=== PATIENT | female | born 1945 | race Caucasian/White ===

== ENCOUNTER 2021-02-21 12:39 | Emergency (ER) | payer MEDICARE, OTHER ==
[2021-02-21] MEDS ORDERED: Ondansetron 4 MG Tab.DIS PO ONE (13:10)
--- NOTE | 2021-02-21 13:14 | EDM.PDOC ---
ED HPI GENERAL MEDICAL PROBLEM - General Chief Complaint: Gastrointestinal Problem Stated Complaint: VOMITING AND HIGH BLOOD PRESSURE SENT BY [facility] Time Seen by Provider: 02/21/21 12:51 Source of Information: Reports: Patient, Family (), RN Notes Reviewed History Limitations: Reports: No Limitations - History of Present Illness INITIAL COMMENTS - FREE TEXT/NARRATIVE: Patient is a 76-year-old female who presents to the ED for the evaluation of her elevated blood pressure readings and vomiting. Patient notes that she has had some vomiting since yesterday, with associated nausea. She vomited about 3 times yesterday she became concerned when her blood pressure spiked to roughly 140 systolically over 90s diastolically. Patient's heart rate also spiked to 100-112 and she became concerned. She notes that she was able to keep a small amount of fluids down this morning, but still feels slightly nauseous. She is complaining of some pain in her low back, and just a generalized stomachache. She is not having any dysuria, urgency or frequency. She does complain of a left inguinal hernia, that she is able to reduce at times but states this was pretty painful yesterday again but she was able to reduce the hernia back into its position. She notes that she had some chills last night after vomiting but has had no fever, cough or shortness of breath. No one else in her house has- like symptoms. She is not complaining of any diarrhea. She notes that she has seen a specialist in [facility] for her hernia but was told that nothing would be done with it unless it became a surgical emergency. Lower Abdomen Pain Score (Numeric/FACES): 3 - Related Data Allergies Allergy/AdvReac Type Severity Reaction Status Date / Time cat dander Allergy Sneezing Verified 02/21/21 12:50 metoprolol Allergy Swelling Verified 02/21/21 12:50 Home Meds: Home Meds Acetaminophen [Tylenol Extra Strength] 500 mg PO Q6H PRN 06/28/15 [History] Ascorbic Acid [Vitamin C] 1 tab PO DAILY 06/28/15 [History] Aspirin [[place] Aspirin] 81 mg PO DAILY 06/28/15 [History] Calcium Carbonate [Calcium] 1,200 mg PO DAILY 06/28/15 [History] Celecoxib [CeleBREX] 200 mg PO DAILY 06/28/15 [History] Esomeprazole [NexIUM] 40 mg PO DAILY 06/28/15 [History] Glucosam/Chondr/Collagn/Hyalur [Glucosamine & Chondroitin Cap] 1 each PO DAILY 06/28/15 [History] LORazepam 1 mg PO ASDIRECTED PRN 06/28/15 [History] Levothyroxine [Sythroid] 100 mcg PO DAILY 06/28/15 [History] Multivitamin [Multivitamins] 1 each PO DAILY 06/28/15 [History] Nitroglycerin [Nitrostat] 0.4 mg SL ASDIRECTED PRN 06/28/15 [History] Simvastatin [Zocor] 20 mg PO ONETIME 06/28/15 [History] Ticagrelor [Brilinta] 90 mg PO BID 06/28/15 [History] amLODIPine [Norvasc] 5 mg PO DAILY 06/28/15 [History] Cefdinir [Omnicef] 300 mg PO BID 5 Days #10 cap 02/21/21 [Rx] Ondansetron [Zofran ODT] 4 mg PO Q8H PRN #15 tab.dis 02/21/21 [Rx] Past Medical History HEENT History: Reports: Impaired Vision Other HEENT History: Wears glasses Gastrointestinal History: Reports: Cholelithiasis, Chronic Constipation, Diverticulosis, Hiatal Hernia Genitourinary History: Reports: Urinary Incontinence Musculoskeletal History: Reports: Back Pain, Chronic Endocrine/Metabolic History: Reports: Hypothyroidism - Past Surgical History Cardiovascular Surgical History: Reports: Coronary Artery Stent GI Surgical History: Reports: Appendectomy, Cholecystectomy Female Surgical History: Reports: Hysterectomy Neurological Surgical History: Reports: Laminectomy Musculoskeletal Surgical History: Reports: Knee Replacement, Shoulder Rep lacement Social & Family History - Tobacco Use Tobacco Use Status *Q: Former Tobacco User Used Tobacco, but Quit: Yes Month/Year Tobacco Last Used: 1998 - Recreational Drug Use Recreational Drug Use: No ED ROS GENERAL - Review of Systems Review Of Systems: Comprehensive ROS is negative, except as noted in HPI. ED EXAM, GI/ABD - Physical Exam Exam: See Below Exam Limited By: No Limitations General Appearance: Alert, WD/WN, No Apparent Distress Respiratory/Chest: No Respiratory Distress, Lungs Clear, Normal Breath Sounds, No Accessory Muscle Use, Chest Non-Tender Cardiovascular: Normal Peripheral Pulses, Regular Rate, Rhythm, No Edema GI/Abdominal Exam: Normal Bowel Sounds, Soft, No Distention, No Mass, Tender (slight tenderness over epigastrium) Extremities: Normal Inspection, Normal Capillary Refill Neurological: Alert, Oriented, Normal Cognition, No Motor/Sensory Deficits Psychiatric: Normal Affect, Normal Mood Skin Exam: Warm, Dry, Intact, Normal Color, No Rash Course - Vital Signs Last Recorded V/S: Last Vital Signs Temp 97.7 F 02/21/21 12:50 Pulse 89 02/21/21 12:50 Resp 15 02/21/21 12:50 BP 109/74 02/21/21 12:50 Pulse Ox 86 L 02/21/21 12:50 - Orders/Labs/Meds Labs: Laboratory Tests 02/21/21 Range/Units 13:20 Urine Color Yellow (Yellow) Urine Appearance Clear (Clear) Urine pH 5.0 (5.0-8.0) Ur Specific [place] > or = 1.030 (1.005-1.030) Urine Protein 2+ H (Negative) Urine Glucose (UA) Negative (Negative) Urine Ketones 1+ H (Negative) Urine Occult Blood 2+ H (Negative) Urine Nitrite Negative (Negative) Urine Bilirubin 2+ H (Negative) Urine Urobilinogen 1.0 (0.2-1.0) Ur Leukocyte Esterase 3+ H (Negative) Meds: Medications Discontinued Medications Generic Name Dose Route Start Last Admin Trade Name Eleni PRN Reason Stop Dose Admin Ondansetron HCl 4 mg 02/21/21 13:10 02/21/21 13:25 Ondansetron 4 Mg Tab.Dis PO 02/21/21 13:11 4 mg ONETIME ONE Administration - Re-Assessments/Exams Free Text/Narrative Re-Assessment/Exam: 02/21/21 13:13 Patient presents to the ED for ongoing nausea/vomiting, and low back pain, we will go ahead and get a urinalysis to rule out UTI and will give her a dose of oral Zofran for initial nausea management. 02/21/21 13:46 The patient's urinalysis sample was not provided enough volume to do microscopy however nitrites are negative but leukocyte Estrace is 3+, which is suspicious for a possible ongoing UTI, will go ahead and culture the sample provided and stick her on Omnicef for suspected UTI. Departure - Departure Time of Disposition: 13:50 Disposition: Home, Self-Care 01 Condition: Good Clinical Impression: UTI (urinary tract infection) Qualifiers: Urinary tract infection type: acute cystitis Hematuria presence: without hematuria Qualified Code(s): N30.00 - Acute cystitis without hematuria Nausea & vomiting Qualifiers: Vomiting type: unspecified Vomiting Intractability: non-intractable Qualified Code(s): R11.2 - Nausea with vomiting, unspecified - Discharge Information *PRESCRIPTION DRUG MONITORING PROGRAM REVIEWED*: No *COPY OF PRESCRIPTION DRUG MONITORING REPORT IN PATIENT EMELY: No Instructions: Nausea and Vomiting, Adult, [id number], Urinary Tract Infection, Adult, [id number] Referrals: PCP,Not In Area [Primary Care Provider] - Forms: ED Department Discharge Additional Instructions: You have been evaluated in the ED for your urinary symptoms. Your urinalysis was consistent with an acute urinary tract infection. Your urine was sent for culture, and you will be notified if you should need a change in your antibiotic. This may take up to 48 hours to result. You have been given a prescription for Omnicef (cefdinir), 300 mg 1 tablet 2 times a day for 5 days. Please note that the antibiotics can take up to 48 hours to start working. Please increase your oral fluid intake and try to stay adequately hydrated. You were given a medication called Zofran as well for nausea, please use 1 tablet dissolvable under your tongue every 6-8 hours as needed for nausea. Your first dose was given to you in the ER at around 1:30 PM. So you may start dosing again at around 7-9:00 tonight. Please return to the ED if your symptoms change or worsen. Sepsis Event Note (ED) - Evaluation Sepsis Screening Result: No Definite Risk - Focused Exam Vital Signs: Vital Signs Temp Pulse Resp BP Pulse Ox 02/21/21 12:50 97.7 F 89 15 109/74 86 L
[2021-02-21 14:25] VITALS: BP 102/61; PULSE 76
== END 2021-02-21 14:05 | disposition home or self-care (01) ==
LOC: JD.ED 12:39
DX: N30.00 Acute cystitis without hematuria (principal); Z88.8 Allergy status to other drugs, medicaments and biological substances; Z79.899 Other long term (current) drug therapy; Z79.82 Long term (current) use of aspirin; E03.9 Hypothyroidism, unspecified; Z90.49 Acquired absence of other specified parts of digestive tract; Z90.710 Acquired absence of both cervix and uterus; Z87.891 Personal history of nicotine dependence
CPT/HCPCS: 81003; 87086; 87088; 87184; 87186; 99284; A9270; 99283

== ENCOUNTER 2021-02-22 23:41 | Inpatient (IN) | payer MEDICARE, OTHER ==
[2021-02-23] MEDS ORDERED: Ondansetron 4 MG/2 ML SDV IVPUSH ONE ×2 (00:08→03:46)
--- NOTE | 2021-02-23 00:09 | EDM.PDOC ---
ED HPI GENERAL MEDICAL PROBLEM - General Chief Complaint: Gastrointestinal Problem Stated Complaint: poss uti nausea back pain Time Seen by Provider: 02/22/21 23:48 Source of Information: Reports: Patient History Limitations: Reports: No Limitations - History of Present Illness INITIAL COMMENTS - FREE TEXT/NARRATIVE: This is a 76-year-old female. She was seen here on due to some nausea and vomiting and difficulty in keeping fluids down. She was found to have a urinary tract infection and placed on Omnicef. She was also given Zofran to take home. She states that she has not been able to keep anything down since she got home. She has taken for Omnicef. She has been using the Zofran but it has not been helping. She complains of feeling bloated and her mid abdomen is where she seems to be hurting. She also complains of bilateral flank soreness and pain but it does not seem to get worse when she vomits. She thinks she has had the chills as well but she has not documented a fever. She comes back to the ER because of the persistent nausea and vomiting and abdominal pain. She does have a hernia in the left lower quadrant area but that has not been hurting her. She indicates the hernia is nonfixable unless it gets strangulated. She is able to push it back in. The patient indicates she has had a cholecystectomy, hysterectomy but the ovaries are still there and also appendectomy. After I spoke with Dr. Mcdermott the patient now tells me she has a history of stents but she has no current cardiac symptoms and she has been stable. Back Pain Score (Numeric/FACES): 6 - Related Data Allergies Allergy/AdvReac Type Severity Reaction Status Date / Time cat dander Allergy Sneezing Verified 02/22/21 23:51 colchicine Allergy Rash Verified 02/23/21 05:53 metoprolol Allergy Swelling Verified 02/22/21 23:51 Home Meds: Home Meds Acetaminophen [Tylenol Extra Strength] 500 mg PO Q6H PRN 06/28/15 [History] Ascorbic Acid [Vitamin C] 1 tab PO DAILY 06/28/15 [History] Aspirin [[place] Aspirin] 81 mg PO DAILY 06/28/15 [History] Calcium Carbonate [Calcium] 1,200 mg PO DAILY 06/28/15 [History] Celecoxib [CeleBREX] 200 mg PO DAILY 06/28/15 [History] Esomeprazole [NexIUM] 40 mg PO DAILY 06/28/15 [History] Glucosam/Chondr/Collagn/Hyalur [Glucosamine & Chondroitin Cap] 1 each PO DAILY 06/28/15 [History] LORazepam 1 mg PO ASDIRECTED PRN 06/28/15 [History] Levothyroxine [Sythroid] 100 mcg PO DAILY 06/28/15 [History] Multivitamin [Multivitamins] 1 each PO DAILY 06/28/15 [History] Nitroglycerin [Nitrostat] 0.4 mg SL ASDIRECTED PRN 06/28/15 [History] Simvastatin [Zocor] 20 mg PO ONETIME 06/28/15 [History] Ticagrelor [Brilinta] 90 mg PO BID 06/28/15 [History] amLODIPine [Norvasc] 5 mg PO DAILY 06/28/15 [History] Cefdinir [Omnicef] 300 mg PO BID 5 Days #10 cap 02/21/21 [Rx] Ondansetron [Zofran ODT] 4 mg PO Q8H PRN #15 tab.dis 02/21/21 [Rx] Past Medical History HEENT History: Reports: Impaired Vision Other HEENT History: Wears glasses Gastrointestinal History: Reports: Cholelithiasis, Chronic Constipation, Diverticulosis, Hiatal Hernia Genitourinary History: Reports: Urinary Incontinence Musculoskeletal History: Reports: Back Pain, Chronic Endocrine/Metabolic History: Reports: Hypothyroidism - Past Surgical History Cardiovascular Surgical History: Reports: Coronary Artery Stent GI Surgical History: Reports: Appendectomy, Cholecystectomy Female Surgical History: Reports: Hysterectomy Neurological Surgical History: Reports: Laminectomy Musculoskeletal Surgical History: Reports: Knee Replacement, Shoulder Replacement Social & Family History - Family History Family Medical History: No Pertinent Family History - Tobacco Use Tobacco Use Status *Q: Former Tobacco User Used Tobacco, but Quit: Yes Month/Year Tobacco Last Used: 1998 - Caffeine Use Caffeine Use: Reports: Coffee - Recreational Drug Use Recreational Drug Use: No ED ROS GENERAL - Review of Systems Review Of Systems: See Below Constitutional: Reports: Chills. Denies: Fever HEENT: Reports: No Symptoms Respiratory: Denies: Shortness of Breath, Cough Cardiovascular: Denies: Chest Pain GI/Abdominal: Reports: Abdominal Pain, Nausea, Vomiting. Denies: Constipation, Diarrhea : Reports: No Symptoms Musculoskeletal: Reports: Back Pain Skin: Reports: No Symptoms Neurological: Reports: No Symptoms Psychiatric: Reports: No Symptoms Hematologic/Lymphatic: Reports: No Symptoms ED EXAM, GI/ABD - Physical Exam Exam: See Below Exam Limited By: No Limitations General Appearance: Alert, WD/WN, Mild Distress, Other (Feels like she is gagging in the ER) Eyes: Bilateral: Normal Appearance Ears: Normal External Exam Nose: Normal Inspection Throat/Mouth: Normal Inspection, Normal Lips, Normal Voice, No Airway Compromise Head: Normocephalic Neck: Supple Respiratory/Chest: No Respiratory Distress, Lungs Clear, Normal Breath Sounds Cardiovascular: Regular Rate, Rhythm, No Murmur GI/Abdominal Exam: Soft, Tender, Hernia, Other (The mid abdomen is where she is tender and she seems to be distended though it is soft with no peritoneal signs. The left lower quadrant hernia is reduced.). No: Guarding, Rigid, Rebound Back Exam: Normal Inspection, Full Range of Motion, Other (She has no CVA tenderness noted on percussion) Extremities: Normal Inspection, Normal Range of Motion Neurological: Alert, Oriented Psychiatric: Anxious Skin Exam: Warm, Dry Course - Vital Signs Last Recorded V/S: Last Vital Signs Temp 97.7 F 02/23/21 03:35 Pulse 93 02/23/21 03:00 Resp 15 02/23/21 04:05 BP 130/73 02/23/21 04:05 Pulse Ox 92 L 02/23/21 04:05 - Orders/Labs/Meds Orders: Active Orders 24 hr Category Date Time Status Admission Status [Patient Status] [ADT] Routine ADT 02/23/21 03:19 Active Abdomen 2V AP Flat Upright [CR] Stat Exams 02/23/21 00:08 Taken Abdomen Pelvis wo Cont [CT] Stat Exams 02/23/21 01:17 Taken CULTURE URINE [RM] Stat Lab 02/23/21 02:15 Received Medication Orders Hydromorphone HCl (Hydromorphone 0.5 Mg/0.5 Ml Syringe) 0.5 mg IVPUSH Q4H PRN PRN Reason: cramps Lactated Ringer's (Ringers, Lactated) 1,000 mls @ 125 mls/hr IV ASDIRECTED [facility] Last Admin: 02/23/21 05:37 Dose: 125 mls/hr Documented by: DAVIS Ceftriaxone Sodium 2 gm/ (Sodium Chloride) 100 mls @ 200 mls/hr IV Q24H GRAHAM Ondansetron HCl (Ondansetron 4 Mg/2 Ml Sdv) 4 mg IVPUSH Q4HR PRN PRN Reason: nausea Labs: Laboratory Tests 02/23/21 02/23/21 02/23/21 Range/Units 00:17 00:25 00:25 WBC 8.80 (3.98-10.04) K/mm3 RBC 4.29 (3.98-5.22) M/mm3 Hgb 13.1 (11.2-15.7) gm/dl Hct 41.2 (34.1-44.9) % MCV 96.0 H (79.4-94.8) fl MCH 30.5 (25.6-32.2) pg MCHC 31.8 L (32.2-35.5) g/dl RDW Std Deviation 48.0 H (36.4-46.3) fL Plt Count 291 (182-369) K/mm3 MPV 10.8 (9.4-12.3) fl Neut % (Auto) 82.9 H (34.0-71.1) % Lymph % (Auto) 8.4 L (19.3-51.7) % [place] % (Auto) 7.2 (4.7-12.5) % Eos % (Auto) 1.3 (0.7-5.8) Baso % (Auto) 0.1 (0.1-1.2) % Neut # (Auto) 7.30 H (1.56-6.13) K/mm3 Lymph # (Auto) 0.74 L (1.18-3.74) K/mm3 [place] # (Auto) 0.63 H (0.24-0.36) K/mm3 Eos # (Auto) 0.11 (0.04-0.36) K/mm3 Baso # (Auto) 0.01 (0.01-0.08) K/mm3 Manual Slide Review Abnormal smear Sodium 134 L (136-145) mEq/L Potassium 4.6 (3.5-5.1) mEq/L Chloride 96 L (98-107) mEq/L Carbon Dioxide 26 (21-32) mEq/L Anion Gap 16.6 H (5-15) BUN 31 H (7-18) mg/dL Creatinine 2.1 H (0.55-1.02) mg/dL Est Cr Clr Drug Dosing 16.11 mL/min Estimated GFR (MDRD) 23 (>60) mL/min BUN/Creatinine Ratio 14.8 (14-18) Glucose 113 (83-115) mg/dL Calcium 9.7 (8.5-10.1) mg/dL Total Bilirubin 0.7 (0.2-1.0) mg/dL AST 25 (15-37) U/L ALT 24 (14-59) U/L Alkaline Phosphatase 88 (46-116) U/L C-Reactive Protein 2.5 H* (<1.0) mg/dL Total Protein 7.3 (6.4-8.2) g/dl Albumin 3.3 L (3.4-5.0) g/dl Globulin 4.0 gm/dL Albumin/Globulin Ratio 0.8 L (1-2) Lipase 74 (73-393) U/L Urine Color Yellow (Yellow) Urine Appearance Cloudy H (Clear) Urine pH 5.0 (5.0-8.0) Ur Specific [place] > or = 1.030 (1.005-1.030) Urine Protein 1+ H (Negative) Urine Glucose (UA) Negative (Negative) Urine Ketones 1+ H (Negative) Urine Occult Blood 2+ H (Negative) Urine Nitrite Negative (Negative) Urine Bilirubin 2+ H (Negative) Urine Urobilinogen 0.2 (0.2-1.0) Ur Leukocyte Esterase 1+ H (Negative) U Hyaline Cast (Auto) 20-30 H (0-5) /lpf Urine RBC 5-10 H (0-5) /hpf Urine WBC 50-75 H (0-5) /hpf Ur Squamous Epith Cells 20-30 H (0-5) /hpf Urine Bacteria Many H (FEW) /hpf Urine Mucus Not seen (FEW) /hpf Meds: Medications Generic Name Dose Route Start Last Admin Trade Name Freq PRN Reason Stop Dose Admin Hydromorphone HCl 0.5 mg 02/23/21 06:18 Hydromorphone 0.5 Mg/0.5 Ml Syringe IVPUSH Q4H PRN cramps Lactated Ringer's 1,000 mls @ 125 mls/hr 02/23/21 05:22 02/23/21 05:37 Ringers, Lactated IV 125 mls/hr ASDIRECTED GRAHAM Administration Ceftriaxone Sodium 2 gm/ 100 mls @ 200 mls/hr 02/23/21 06:30 Sodium Chloride IV Q24H GRAHAM Ondansetron HCl 4 mg 02/23/21 08:00 Ondansetron 4 Mg/2 Ml Sdv IVPUSH Q4HR PRN nausea Discontinued Medications Generic Name Dose Route Start Last Admin Trade Name Freq PRN Reason Stop Dose Admin Hydromorphone HCl 0.5 mg 02/23/21 03:45 02/23/21 03:51 Hydromorphone 0.5 Mg/0.5 Ml Syringe IVPUSH 02/23/21 03:46 0.5 mg ONETIME ONE Administration Sodium Chloride 1,000 mls @ 1,000 mls/hr 02/23/21 00:15 02/23/21 00:27 Normal Saline IV 1,000 mls/hr ASDIRECTED GRAHAM Administration Lactated Ringer's 1,000 mls @ 999 mls/hr 02/23/21 03:45 02/23/21 04:00 Ringers, Lactated IV 02/23/21 04:45 999 mls/hr .BOLUS ONE Administration Lactated Ringer's Confirm 02/23/21 05:18 02/23/21 06:10 Ringers, Lactated Administered 02/23/21 05:19 Not Given Dose 1,000 mls @ as directed .ROUTE .STK-MED ONE Lidocaine HCl 10 ml 02/23/21 03:21 02/23/21 03:32 Lidocaine 2% Jelly 10 Ml Urojet MUCMEM 02/23/21 03:22 10 ml ONETIME ONE Administration Ondansetron HCl 4 mg 02/23/21 00:08 02/23/21 00:27 Ondansetron 4 Mg/2 Ml Sdv IVPUSH 02/23/21 00:09 4 mg ONETIME ONE Administration Ondansetron HCl 4 mg 02/23/21 03:46 02/23/21 03:51 Ondansetron 4 Mg/2 Ml Sdv IVPUSH 02/23/21 03:47 4 mg ONETIME ONE Administration - Radiology Interpretation Free Text/Narrative:: Flat and upright x-ray shows multiple air-fluid levels and dilated bowel loops. CT scan without contrast of the abdomen and pelvis shows a small bowel obstruction with a transition point in the mid abdomen there is no free air and there is no fluid collection. X-ray shows the NG tube to be in the stomach bubble - Re-Assessments/Exams Free Text/Narrative Re-Assessment/Exam: 02/23/21 03:09 Spoke to the patient regarding the blood work as well as the CT scan that shows a small bowel obstruction with a transition point in the mid abdomen there is no fluid in the pelvis and there is no air noted. 02/23/21 03:[address] Mcdermott regarding the patient's condition. He is willing to admit the patient for further evaluation and treatment. 02/23/21 03:13 Patient does have a urinary tract infection we will treat it with some Rocephin IV. 02/23/21 04:40 X-ray shows the NG tube to be in the stomach bubble. 02/23/21 04:52 I wrote some bridge orders for Dr. Mcdermott. He was wanting a CBC and a BMP at 6 AM blood draw. I started her on Rocephin 2 g IV every 24 hours for her UTI. Departure - Departure Time of Disposition: 03:11 Disposition: Admitted As Inpatient 65 Condition: Fair Clinical Impression: Small bowel obstruction, Abdominal cramps, Abdominal distention Ventral hernia Qualifiers: Obstruction and gangrene presence: without obstruction or gangrene Qualified Code(s): K43.9 - Ventral hernia without obstruction or gangrene Nausea and vomiting Qualifiers: Vomiting type: unspecified Vomiting Intractability: non-intractable Qualified Code(s): R11.2 - Nausea with vomiting, unspecified UTI (urinary tract infection) Qualifiers: Urinary tract infection type: acute cystitis Hematuria presence: without hematuria Qualified Code(s): N30.00 - Acute cystitis without hematuria - Discharge Information Sepsis Event Note (ED) - Evaluation Sepsis Screening Result: No Definite Risk - Focused Exam Vital Signs: Vital Signs Temp Pulse Resp BP Pulse Ox 02/23/21 03:00 93 17 113/71 96 02/23/21 02:17 88 16 114/68 96 02/23/21 01:00 74 16 112/56 L 94 L 02/23/21 00:00 84 17 114/58 L 94 L 03/26/21 23:48 96.9 F 88 17 111/66 99 ED Communication - ED Communication Date/Time Date: 02/23/21 Time Called: 03:10 - Discussed Case With (1) Discussed Case With (1): Admitting Provider Person/s Notified (1): Hernán Mcdermott (He will admit for further evaluation and treatment) - My Orders Last 24 Hours: My Active Orders 02/23/21 00:08 Abdomen 2V AP Flat Upright [CR] Stat 02/23/21 01:17 Abdomen Pelvis wo Cont [CT] Stat 02/23/21 02:15 CULTURE URINE [RM] Stat 02/23/21 03:19 Admission Status [Patient Status] [ADT] Routine - Assessment/Plan Last 24 Hours: My Active Orders 02/23/21 00:08 Abdomen 2V AP Flat Upright [CR] Stat 02/23/21 01:17 Abdomen Pelvis wo Cont [CT] Stat 02/23/21 02:15 CULTURE URINE [RM] Stat 02/23/21 03:19 Admission Status [Patient Status] [ADT] Routine
[2021-02-23] MEDS ORDERED: Sodium Chloride 0.9% 1,000 ML IV SCH (00:15)
[2021-02-23] MEDS ORDERED: Lidocaine 2% Jelly 10 ML Urojet MUCMEM ONE (03:21)
[2021-02-23] MEDS ORDERED: Lactated Ringers 1,000 ML IV ONE (03:45)
[2021-02-23] MEDS ORDERED: HYDROmorphone 0.5 MG/0.5 ML Syringe IVPUSH ONE (03:45)
[2021-02-23] MEDS ORDERED: Lactated Ringers 1,000 ML ONE (05:18)
[2021-02-23] MEDS ORDERED: Lactated Ringers 1,000 ML IV SCH (05:22)
[2021-02-23] MEDS ORDERED: HYDROmorphone 0.5 MG/0.5 ML Syringe IVPUSH PRN (06:18)
[2021-02-23] MEDS ORDERED: cefTRIAXone 2 GM in Sodium Chloride 0.9% 100 ML IV SCH (06:30)
[2021-02-23 06:55] VITALS: BP 130/78; PULSE 88
[2021-02-23] MEDS ORDERED: Ondansetron 4 MG/2 ML SDV IVPUSH PRN (08:00)
--- NOTE | 2021-02-23 08:01 | PCM.SN.2 ---
- Free Text/Narrative Note: Patient admitted overnight with small bowel obstruction. NG with minimal output; No flatus. Distended loops of bowel, tender, palpable through large infraumbilical midline hernia. No peritonitis. Patient and family express no confidence and wish to go to [place] for care. I explained a plan for management including upsizing the NG tube, trial of therapeutic gastrografin, and fluid resuscitation. The patient wants to go to [place] now. I see no medical reason the patient requires transfer to a higher level of care, so I have asked the patient to sign out against medical advice as she feels most comfortable having family drive her now.
--- NOTE | 2021-02-24 08:27 | CR ---
Abdomen: Supine and upright views of the abdomen were obtained. Comparison: No prior abdominal x-ray is available. Scoliosis is noted within the spine with degenerative change. Scattered areas of air-fluid levels are seen within the small bowel. Small bowel only appears mildly dilated. Gas within the colon is seen which is unremarkable. No free air is seen. Surgical clips are seen from prior cholecystectomy. Vascular calcification is noted. Impression: 1. Air-fluid levels within small bowel. Small bowel is slightly dilated. Finding suspicious for partial or developing small bowel obstruction. 2. Other findings as noted above which are felt to be incidental. Diagnostic code #3
--- NOTE | 2021-02-24 08:35 | CR ---
Chest: Portable view of the chest was obtained. Comparison: Prior chest x-ray of 04/20/13. Heart size is within normal limits for portable technique. Tortuous thoracic aorta is noted. Nasogastric tube is seen with tip lying within the stomach fundus. Lungs are clear with no acute parenchymal change. Right shoulder prosthesis is noted. Scoliosis is noted within the spine. Scattered degenerative change is also noted within the spine. Impression: 1. Tip of nasogastric tube within the stomach fundus. 2. Other findings as noted above. No other acute abnormality is appreciated. Diagnostic code #3
--- NOTE | 2021-02-24 11:57 | CT ---
CT abdomen and pelvis Technique: Multiple axial sections were obtained from above the dome of the diaphragm inferiorly through the pubic symphysis. Intravenous and oral contrast not utilized. Reconstructed coronal and sagittal images were obtained. Comparison: Prior abdominal x-ray performed on the same date (12:34 AM). Findings: Fluid-filled and air-filled dilated small bowel are noted. Lower anterior abdominal wall hernia is seen at the level of the pelvis which contains dilated small bowel loops. Transition point of the obstruction is difficult to see but is most likely within the mid abdomen. Distal loops of small bowel are normal in size. Appendix is not definitely visualized. Visualized lung bases show nothing acute. Noncontrast appearance of the liver and spleen appear within normal limits. Small hiatal hernia is noted. Adrenal glands are slightly full without discrete nodule. Pancreas shows no discrete abnormality. Prior cholecystectomy is seen. Kidneys show no abnormal calcifications or hydronephrosis. Abdominal aorta shows atherosclerotic change which continues into the iliac vessels. No aneurysm is seen. No retroperitoneal adenopathy or mesenteric abnormalities are appreciated. No pelvic mass or adenopathy is appreciated. Slight scattered diverticuli are seen with no inflammatory change of diverticulitis. Bone window settings were reviewed which show diffuse degenerative change within the spine with disc space narrowing and vacuum phenomena. Mild spondylolisthesis is noted at L4-5 due to degenerative apophyseal change. Degenerative change is also noted within the sacroiliac joints. Diffuse coronary artery calcification is partially visualized. Impression: 1. Dilated small bowel loops which are more prominent than on previous plain film study. Findings are felt compatible with mid small bowel obstruction with distal small bowel appearing normal in size. 2. Anterior abdominal wall hernia at the level of the pelvis. This abdominal wall hernia contains loops of dilated small bowel but does not appear to be obstructing. 3. Other findings as noted above which are believed to be chronic. Diagnostic code #3 I agree with preliminary report from [facility], finalized on 02/23/21, 3:54 AM CDT
--- NOTE | 2021-02-27 16:20 | PCM.DCSUM1 ---
Discharge Summary - Hospital Course Free Text/Narrative:: Patient was admitted overnight with small bowel obstruction by the emergency medicine doctor. On morning rounds, when I first saw the patient and family and discussed diagnosis and management, they decided they wanted to pursue care in [place], closer to family. - Discharge Data Discharge Date: 02/23/21 Discharge Disposition: Against Medical Advice 07 Condition: Good - Referral to Home Health Primary Care Physician: Abhay Quinones MD - Discharge Plan Home Medications: Home Meds Acetaminophen [Tylenol Extra Strength] 500 mg PO Q6H PRN 06/28/15 [History] Ascorbic Acid [Vitamin C] 1 tab PO DAILY 06/28/15 [History] Aspirin [[place] Aspirin] 81 mg PO DAILY 06/28/15 [History] Calcium Carbonate [Calcium] 1,200 mg PO DAILY 06/28/15 [History] Celecoxib [CeleBREX] 200 mg PO DAILY 06/28/15 [History] Esomeprazole [NexIUM] 40 mg PO DAILY 06/28/15 [History] Glucosam/Chondr/Collagn/Hyalur [Glucosamine & Chondroitin Cap] 1 each PO DAILY 06/28/15 [History] LORazepam 1 mg PO ASDIRECTED PRN 06/28/15 [History] Levothyroxine [Sythroid] 100 mcg PO DAILY 06/28/15 [History] Multivitamin [Multivitamins] 1 each PO DAILY 06/28/15 [History] Nitroglycerin [Nitrostat] 0.4 mg SL ASDIRECTED PRN 06/28/15 [History] Simvastatin [Zocor] 20 mg PO ONETIME 06/28/15 [History] Ticagrelor [Brilinta] 90 mg PO BID 06/28/15 [History] amLODIPine [Norvasc] 5 mg PO DAILY 06/28/15 [History] Cefdinir [Omnicef] 300 mg PO BID 5 Days #10 cap 02/21/21 [Rx] Ondansetron [Zofran ODT] 4 mg PO Q8H PRN #15 tab.dis 02/21/21 [Rx] - Discharge Summary/Plan Comment DC Time >30 min.: No - Patient Data Vitals - Most Recent: Last Vital Signs Temp 36.7 C 02/23/21 05:14 Pulse 72 02/23/21 05:20 Resp 14 02/23/21 05:14 BP 120/85 02/23/21 05:14 Pulse Ox 100 02/23/21 05:20 Weight - Most Recent: 76.884 kg Med Orders - Current: Current Medications Discontinued Medications Hydromorphone HCl (Hydromorphone 0.5 Mg/0.5 Ml Syringe) 0.5 mg IVPUSH ONETIME ONE Stop: 02/23/21 03:46 Last Admin: 02/23/21 03:51 Dose: 0.5 mg Documented by: Hydromorphone HCl (Hydromorphone 0.5 Mg/0.5 Ml Syringe) 0.5 mg IVPUSH Q4H PRN PRN Reason: cramps Sodium Chloride (Normal Saline) 1,000 mls @ 1,000 mls/hr IV ASDIRECTED [facility] Last Admin: 02/23/21 00:27 Dose: 1,000 mls/hr Documented by: Lactated Ringer's (Ringers, Lactated) 1,000 mls @ 999 mls/hr IV .BOLUS ONE Stop: 02/23/21 04:45 Last Admin: 02/23/21 04:00 Dose: 999 mls/hr Documented by: Lactated Ringer's (Ringers, Lactated) Confirm Administered Dose 1,000 mls @ as directed .ROUTE .STK-MED ONE Stop: 02/23/21 05:19 Last Admin: 02/23/21 06:10 Dose: Not Given Documented by: Lactated Ringer's (Ringers, Lactated) 1,000 mls @ 125 mls/hr IV ASDIRECTED [facility] Last Admin: 02/23/21 05:37 Dose: 125 mls/hr Documented by: Ceftriaxone Sodium 2 gm/ (Sodium Chloride) 100 mls @ 200 mls/hr IV Q24H [facility] Lidocaine HCl (Lidocaine 2% Jelly 10 Ml Urojet) 10 ml MUCMEM ONETIME ONE Stop: 02/23/21 03:22 Last Admin: 02/23/21 03:32 Dose: 10 ml Documented by: Ondansetron HCl (Ondansetron 4 Mg/2 Ml Sdv) 4 mg IVPUSH ONETIME ONE Stop: 02/23/21 00:09 Last Admin: 02/23/21 00:27 Dose: 4 mg Documented by: Ondansetron HCl (Ondansetron 4 Mg/2 Ml Sdv) 4 mg IVPUSH ONETIME ONE Stop: 02/23/21 03:47 Last Admin: 02/23/21 03:51 Dose: 4 mg Documented by: Ondansetron HCl (Ondansetron 4 Mg/2 Ml Sdv) 4 mg IVPUSH Q4HR PRN PRN Reason: nausea
== END 2021-02-23 08:14 | disposition left against medical advice (07) | DRG 390 ==
LOC: JD.ED 23:41 → JD.MS 02-23 03:23
PROVIDERS: ADMIT Surgery; ATTEND Surgery
PROC: 0D9670Z Drainage of Stomach with Drainage Device, Via Natural or Artificial Opening (ICD-10-PCS; principal; 2021-02-22)
DX: K56.609 Unspecified intestinal obstruction, unspecified as to partial versus complete obstruction (principal); K42.9 Umbilical hernia without obstruction or gangrene; K43.9 Ventral hernia without obstruction or gangrene; R11.2 Nausea with vomiting, unspecified; K44.9 Diaphragmatic hernia without obstruction or gangrene; N30.00 Acute cystitis without hematuria; H54.7 Unspecified visual loss; K59.09 Other constipation; Z96.659 Presence of unspecified artificial knee joint; Z96.619 Presence of unspecified artificial shoulder joint; K57.90 Diverticulosis of intestine, part unspecified, without perforation or abscess without bleeding; R32 Unspecified urinary incontinence; G89.29 Other chronic pain; Z90.710 Acquired absence of both cervix and uterus; M54.9 Dorsalgia, unspecified; E03.9 Hypothyroidism, unspecified; Z95.5 Presence of coronary angioplasty implant and graft; Z90.49 Acquired absence of other specified parts of digestive tract; Z87.891 Personal history of nicotine dependence; Z88.8 Allergy status to other drugs, medicaments and biological substances; Z91.048 Other nonmedicinal substance allergy status; Z79.82 Long term (current) use of aspirin; Z79.890 Hormone replacement therapy; Z79.899 Other long term (current) drug therapy; Z20.822 Contact with and (suspected) exposure to COVID-19
CPT/HCPCS: 36415; 74019; 74176; 80053; 81001; 83690; 85025; 86140; 87086; 96374; 99285; J2405; J7030; 80048; 94760; 99238; J1170; J7120; U0002

== ENCOUNTER 2021-08-26 13:38 | Emergency (ER) | payer MEDICARE, OTHER ==
[2021-08-26 15:43] VITALS: BP 151/90; PULSE 93
[2021-08-26] MEDS ORDERED: Sodium Chloride 0.9% 10 ML Syringe FLUSH PRN ×2 (15:46→17:44)
[2021-08-26] MEDS ORDERED: Ondansetron 4 MG/2 ML SDV IVPUSH ONE (15:46)
[2021-08-26] MEDS ORDERED: Sodium Chloride 0.9% 1,000 ML IV SCH (16:00)
[2021-08-26] MEDS ORDERED: Magnesium Citrate Solution 296 ML Bottle PO ONE (16:13)
--- NOTE | 2021-08-26 16:25 | EDM.PDOC ---
ED HPI GENERAL MEDICAL PROBLEM - General Chief Complaint: Abdominal Pain Stated Complaint: WOUND CHECK/POSS INFECTION Time Seen by Provider: 08/26/21 15:46 Source of Information: Reports: Patient, RN Notes Reviewed History Limitations: Reports: No Limitations - History of Present Illness INITIAL COMMENTS - FREE TEXT/NARRATIVE: Patient is a 76-year-old female who presents to the ER for the evaluation of her abdominal pain/discomfort and wound drainage. Patient had an abdominal surgery for an obstruction on March 05, 2021 and notes that she was left with an open wound to her abdomen, that she has been having issues off and on since then. She states that she has been packing it for quite a bit of time but was told on August 14, 2021 by her her GI doctor, Dr. Florse that she needed to no longer pack and does clean it with peroxide fluid. The patient has been doing that, but noted over the last 2 days she has developed more leblanc-colored purulent drainage and has some associated tenderness, along with a low-grade fever of 100.8 F. Patient did show me pictures of an increased abdominal drainage from the wound. She is quite tender around this wound, which is just inferior to her umbilicus. Notes that she has had issues with sepsis, and illness regarding the draining wound. She is concerned this time as she is not wanting to have developed any worsening infection so she comes to the ER for evaluation and management. Other than the low-grade fever, she has not had any cough or shortness of breath, or any sort of nausea/vomiting/diarrhea. She did have COVID-19 in June 2021. Lower Abdomen Pain Score (Numeric/FACES): 2 - Related Data Allergies Allergy/AdvReac Type Severity Reaction Status Date / Time cat dander Allergy Sneezing Verified 02/22/21 23:51 colchicine Allergy Rash Verified 02/23/21 05:53 metoprolol Allergy Swelling Verified 02/22/21 23:51 Home Meds: Home Meds Acetaminophen [Tylenol Extra Strength] 500 mg PO Q6H PRN 06/28/15 [History] Ascorbic Acid [Vitamin C] 1 tab PO DAILY 06/28/15 [History] Aspirin [[place] Aspirin] 81 mg PO DAILY 06/28/15 [History] Calcium Carbonate [Calcium] 1,200 mg PO DAILY 06/28/15 [History] Celecoxib [CeleBREX] 200 mg PO DAILY 06/28/15 [History] Esomeprazole [NexIUM] 40 mg PO DAILY 06/28/15 [History] Glucosam/Chondr/Collagn/Hyalur [Glucosamine & Chondroitin Cap] 1 each PO DAILY 06/28/15 [History] LORazepam 1 mg PO ASDIRECTED PRN 06/28/15 [History] Levothyroxine [Sythroid] 100 mcg PO DAILY 06/28/15 [History] Multivitamin [Multivitamins] 1 each PO DAILY 06/28/15 [History] Nitroglycerin [Nitrostat] 0.4 mg SL ASDIRECTED PRN 06/28/15 [History] Simvastatin [Zocor] 20 mg PO ONETIME 06/28/15 [History] Ticagrelor [Brilinta] 90 mg PO BID 06/28/15 [History] amLODIPine [Norvasc] 5 mg PO DAILY 06/28/15 [History] Cefdinir [Omnicef] 300 mg PO BID 5 Days #10 cap 02/21/21 [Rx] Ondansetron [Zofran ODT] 4 mg PO Q8H PRN #15 tab.dis 02/21/21 [Rx] Past Medical History HEENT History: Reports: Cataract, Impaired Vision Other HEENT History: Wears glasses Cardiovascular History: Reports: Hypertension Respiratory History: Reports: Sleep Apnea Gastrointestinal History: Reports: Cholelithiasis, Chronic Constipation, Diverticulosis, Hiatal Hernia Genitourinary History: Reports: Urinary Incontinence Musculoskeletal History: Reports: Back Pain, Chronic, Osteoarthritis Endocrine/Metabolic History: Reports: Hypothyroidism Oncologic (Cancer) History: Reports: Other (See Below) Other Oncologic History: Skin cancer on "face and arms." Dermatologic History: Reports: Other (See Below) Other Dermatologic History: "autoimmune disease, 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." - Infectious Disease History Infectious Disease History: Reports: Chicken Pox, Measles, Mumps, Novel Coronavirus (06/2021), Scarlet Fever - Past Surgical History Cardiovascular Surgical History: Reports: Coronary Artery Stent GI Surgical History: Reports: Appendectomy, Cholecystectomy, Colon (bowel obstruction) Female Surgical History: Reports: Hysterectomy Neurological Surgical History: Reports: Laminectomy Musculoskeletal Surgical History: Reports: Knee Replacement, Shoulder Replacement Social & Family History - Family History Family Medical History: No Pertinent Family History - Tobacco Use Tobacco Use Status *Q: Never Tobacco User - Caffeine Use Caffeine Use: Reports: Coffee - Recreational Drug Use Recreational Drug Use: No ED ROS GENERAL - Review of Systems Review Of Systems: Comprehensive ROS is negative, except as noted in HPI. ED EXAM, GI/ABD - Physical Exam Exam: See Below Exam Limited By: No Limitations General Appearance: Alert, WD/WN, No Apparent Distress Respiratory/Chest: No Respiratory Distress, Lungs Clear, Normal Breath Sounds, No Accessory Muscle Use, Chest Non-Tender Cardiovascular: Normal Peripheral Pulses, Regular Rate, Rhythm, No Edema GI/Abdominal Exam: Normal Bowel Sounds, No Distention, No Mass, Tender (just underneath umbilicus. there is an area that is also hardened to palpation, she has a bandage in place now that does have a moderate amount leblanc colored purulent fluid draining onto it) Neurological: Alert, Oriented, Normal Cognition, No Motor/Sensory Deficits Psychiatric: Normal Affect, Normal Mood Skin Exam: Warm, Dry, Normal Color, No Rash, Wound/Incision (inferior to um bilicus) Course - Vital Signs Last Recorded V/S: Last Vital Signs Temp 100.2 F 08/26/21 15:40 Pulse 93 08/26/21 15:40 Resp 20 08/26/21 15:40 BP 151/90 H 08/26/21 15:40 Pulse Ox 98 08/26/21 15:40 - Orders/Labs/Meds Orders: Active Orders 24 hr Category Date Time Status Peripheral IV Care [RC] . DIRECTED Care 08/26/21 15:47 Active BLOOD CULTURE [MREF] Stat Lab 08/26/21 16:06 Received BLOOD CULTURE [MREF] Stat Lab 08/26/21 16:14 Received CULTURE, ANAEROBE & AEROBE [MREF] Stat Lab 08/26/21 18:40 Received Sodium Chloride 0.9% [Normal Saline] 1,000 ml Med 08/26/21 16:00 Active IV ASDIRECTED Sodium Chloride 0.9% [Saline Flush] Med 08/26/21 15:46 Active 10 ml FLUSH ASDIRECTED PRN Sodium Chloride 0.9% [Saline Flush] Med 08/26/21 17:44 Active 10 ml FLUSH ONETIME PRN Blood Culture x2 Reflex Set [OM.PC] Stat Oth 08/26/21 15:48 Ordered Peripheral IV Insertion Adult [OM.PC] Stat Oth 08/26/21 15:46 Ordered Medication Orders Sodium Chloride (Normal Saline) 1,000 mls @ 999 mls/hr IV ASDIRECTED GRAHAM Last Admin: 08/26/21 16:10 Dose: 999 mls/hr Documented by: SINAN Sodium Chloride (Sodium Chloride 0.9% 10 Ml Syringe) 10 ml FLUSH ASDIRECTED PRN PRN Reason: Keep Vein Open Last Admin: 08/26/21 16:11 Dose: 10 ml Documented by: SINAN Sodium Chloride (Sodium Chloride 0.9% 10 Ml Syringe) 10 ml FLUSH ONETIME PRN PRN Reason: Keep Vein Open Last Admin: 08/26/21 17:47 Dose: 10 ml Documented by: Labs: Laboratory Tests 08/26/21 08/26/21 08/26/21 Range/Units 16:06 16:06 16:06 WBC 7.60 (3.98-10.04) K/mm3 RBC 4.03 (3.98-5.22) M/mm3 Hgb 10.8 L D (11.2-15.7) gm/dl Hct 34.9 (34.1-44.9) % MCV 86.6 D (79.4-94.8) fl MCH 26.8 (25.6-32.2) pg MCHC 30.9 L (32.2-35.5) g/dl RDW Std Deviation 61.5 H (36.4-46.3) fL Plt Count 292 (182-369) K/mm3 MPV 11.0 (9.4-12.3) fl Neut % (Auto) 69.5 (34.0-71.1) % Lymph % (Auto) 18.9 L (19.3-51.7) % [place] % (Auto) 7.8 (4.7-12.5) % Eos % (Auto) 3.4 (0.7-5.8) Baso % (Auto) 0.3 (0.1-1.2) % Neut # (Auto) 5.28 (1.56-6.13) K/mm3 Lymph # (Auto) 1.44 (1.18-3.74) K/mm3 [place] # (Auto) 0.59 H (0.24-0.36) K/mm3 Eos # (Auto) 0.26 (0.04-0.36) K/mm3 Baso # (Auto) 0.02 (0.01-0.08) K/mm3 Sodium 139 (136-145) mEq/L Potassium 3.8 (3.5-5.1) mEq/L Chloride 103 (98-107) mEq/L Carbon Dioxide 26 (21-32) mEq/L Anion Gap 13.8 (5-15) BUN 15 (7-18) mg/dL Creatinine 0.8 (0.55-1.02) mg/dL Est Cr Clr Drug Dosing 42.30 mL/min Estimated GFR (MDRD) > 60 (>60) mL/min BUN/Creatinine Ratio 18.8 H (14-18) Glucose 113 H (70-99) mg/dL Lactic Acid 0.7 (0.4-2.0) mmol/L Calcium 9.3 (8.5-10.1) mg/dL Total Bilirubin 0.3 (0.2-1.0) mg/dL AST 67 H (15-37) U/L ALT 96 H (14-59) U/L Alkaline Phosphatase 260 H (46-116) U/L C-Reactive Protein 15.7 H* (<1.0) mg/dL Total Protein 7.9 (6.4-8.2) g/dl Albumin 3.0 L (3.4-5.0) g/dl Globulin 4.9 gm/dL Albumin/Globulin Ratio 0.6 L (1-2) Lipase 59 L (73-393) U/L Urine Color (Yellow) Urine Appearance (Clear) Urine pH (5.0-8.0) Ur Specific [place] (1.005-1.030) Urine Protein (Negative) Urine Glucose (UA) (Negative) Urine Ketones (Negative) Urine Occult Blood (Negative) Urine Nitrite (Negative) Urine Bilirubin (Negative) Urine Urobilinogen (0.2-1.0) Ur Leukocyte Esterase (Negative) Urine RBC (0-5) /hpf Urine WBC (0-5) /hpf Ur Squamous Epith Cells (0-5) /hpf Urine Bacteria (FEW) /hpf Urine Mucus (FEW) /hpf 08/26/21 Range/Units 17:20 WBC (3.98-10.04) K/mm3 RBC (3.98-5.22) M/mm3 Hgb (11.2-15.7) gm/dl Hct (34.1-44.9) % MCV (79.4-94.8) fl MCH (25.6-32.2) pg MCHC (32.2-35.5) g/dl RDW Std Deviation (36.4-46.3) fL Plt Count (182-369) K/mm3 MPV (9.4-12.3) fl Neut % (Auto) (34.0-71.1) % Lymph % (Auto) (19.3-51.7) % [place] % (Auto) (4.7-12.5) % Eos % (Auto) (0.7-5.8) Baso % (Auto) (0.1-1.2) % Neut # (Auto) (1.56-6.13) K/mm3 Lymph # (Auto) (1.18-3.74) K/mm3 [place] # (Auto) (0.24-0.36) K/mm3 Eos # (Auto) (0.04-0.36) K/mm3 Baso # (Auto) (0.01-0.08) K/mm3 Sodium (136-145) mEq/L Potassium (3.5-5.1) mEq/L Chloride (98-107) mEq/L Carbon Dioxide (21-32) mEq/L Anion Gap (5-15) BUN (7-18) mg/dL Creatinine (0.55-1.02) mg/dL Est Cr Clr Drug Dosing mL/min Estimated GFR (MDRD) (>60) mL/min BUN/Creatinine Ratio (14-18) Glucose (70-99) mg/dL Lactic Acid (0.4-2.0) mmol/L Calcium (8.5-10.1) mg/dL Total Bilirubin (0.2-1.0) mg/dL AST (15-37) U/L ALT (14-59) U/L Alkaline Phosphatase (46-116) U/L C-Reactive Protein (<1.0) mg/dL Total Protein (6.4-8.2) g/dl Albumin (3.4-5.0) g/dl Globulin gm/dL Albumin/Globulin Ratio (1-2) Lipase (73-393) U/L Urine Color Yellow (Yellow) Urine Appearance Clear (Clear) Urine pH 6.5 (5.0-8.0) Ur Specific [place] 1.015 (1.005-1.030) Urine Protein Negative (Negative) Urine Glucose (UA) Negative (Negative) Urine Ketones Negative (Negative) Urine Occult Blood Negative (Negative) Urine Nitrite Negative (Negative) Urine Bilirubin Negative (Negative) Urine Urobilinogen 0.2 (0.2-1.0) Ur Leukocyte Esterase Negative (Negative) Urine RBC 0-5 (0-5) /hpf Urine WBC 0-5 (0-5) /hpf Ur Squamous Epith Cells 0-5 (0-5) /hpf Urine Bacteria Few (FEW) /hpf Urine Mucus Few (FEW) /hpf Meds: Medications Generic Name Dose Route Start Last Admin Trade Name Freq PRN Reason Stop Dose Admin Sodium Chloride 1,000 mls @ 999 mls/hr 08/26/21 16:00 08/26/21 16:10 Normal Saline IV 999 mls/hr ASDIRECTED GRAHAM Administration Sodium Chloride 10 ml 08/26/21 15:46 08/26/21 16:11 Sodium Chloride 0.9% 10 Ml Syringe FLUSH 10 ml ASDIRECTED PRN Administration Keep Vein Open Sodium Chloride 10 ml 08/26/21 17:44 08/26/21 17:47 Sodium Chloride 0.9% 10 Ml Syringe FLUSH 10 ml ONETIME PRN Administration Keep Vein Open Discontinued Medications Generic Name Dose Route Start Last Admin Trade Name Eleni PRN Reason Stop Dose Admin Diatrizoate Meglum/Diatrizoate Sod 60 ml 08/26/21 17:44 08/26/21 17:47 Diatrizoate Meglumine/Diatrizoate Sodium 37% 120 Ml Bottle PO 08/26/21 17:45 60 ml ONETIME ONE Administration Iopamidol 100 ml 08/26/21 17:44 08/26/21 17:47 Iopamidol 612 Mg/Ml 100 Ml Bottle IVPUSH 08/26/21 17:45 100 ml ONETIME ONE Administration Magnesium Citrate 296 ml 08/26/21 16:13 08/26/21 16:32 Magnesium Citrate Solution 296 Ml Bottle PO 08/26/21 16:14 Not Given ONETIME ONE Ondansetron HCl 4 mg 08/26/21 15:46 08/26/21 16:10 Ondansetron 4 Mg/2 Ml Sdv IVPUSH 08/26/21 15:47 4 mg ONETIME ONE Administration - Re-Assessments/Exams Free Text/Narrative Re-Assessment/Exam: 08/26/21 16:25 Patient presents to the ER for evaluation of a wound recheck/possibility of infection. We will go ahead and get labs, blood cultures, lactic acid and abdomen pelvis CT with IV and oral contrast for ongoing management. Highly likely that the patient has some sort of abscess or other abdominal wall issue causing her problems today. 08/26/21 17:32 Patient's labs have resulted for the most part, CBC is essentially unremarkable, CMP is impressive for elevated liver enzymes. ALP is elevated at 260. CRP is elevated at 15.7. Total bilirubin is okay, and lipase is normal at this time. Not entirely sure what would be causing the patient's elevated liver enzymes as she does not have any major risk factors, via review of her med list. 08/26/21 18:[address] did show an abdominal wall abscess measuring at 7 cm x 2.2 cm. With no extension into the abdomen. She also has increased to within the rectosigmoid region. I did go over these findings with Dr. Flores the patient's surgeon and he does recommend the patient be started on Bactrim and that his nurse will call the patient to schedule a appointment for IR drainage for ongoing management, and to continue all other wound management from prior. Wound cultures have been obtained as well. We will go ahead and discharge the patient on Bactrim at this time. Departure - Departure Time of Disposition: 18:49 Disposition: Home, Self-Care 01 Condition: Good Clinical Impression: Abdominal wall abscess at site of surgical wound, Elevated liver enzymes Constipation Qualifiers: Constipation type: other constipation type Qualified Code(s): K59.09 - Other constipation - Discharge Information *PRESCRIPTION DRUG MONITORING PROGRAM REVIEWED*: No *COPY OF PRESCRIPTION DRUG MONITORING REPORT IN PATIENT EMELY: No Instructions: Skin Abscess, [id number] Referrals: Andrade Flores MD [Primary Care Provider] - Forms: ED Department Discharge Additional Instructions: You were evaluated in the ER today for your abdominal wall discomfort. Laboratory evaluation was done at today's visit, and I did show mildly elevated liver enzymes, and an elevated CRP which is a marker for inflammation. Your CT did demonstrate an abdominal wall abscess of sorts that measured 7 x 2.2 cm. This was communicated to your surgeon, Dr. Flores, and he was aware that you had a seroma, or a collection of fluids at that area, and does recommend that you be started on antibiotics for ongoing management. You been started on Bactrim you will need to take 1 tablet 2 times a day for the next 7 days. This medication was electronically sent to the [place] [facility] located in the [facility] grocery store. Dr. Flores's nurse is going to be calling you hopefully tomorrow to set you up with that appointment to see them at their clinic for drainage of this area. He does recommend that you continue all other wound packing as you have been doing previously. If you do not hear anything from Dr. Flores's nurse, tomorrow by the afternoon please call his office to inquire about an appointment, otherwise please show up to his office on Thursday for your previous appointment that has already been scheduled. You may take Tylenol every 6 hours as needed for ongoing pain management. Do not hesitate to return to the ER at any time if symptoms change or worsen. Sepsis Event Note (ED) - Focused Exam Vital Signs: Vital Signs Temp Pulse Resp BP Pulse Ox 08/26/21 15:40 100.2 F 93 20 151/90 H 98 - My Orders Last 24 Hours: My Active Orders 08/26/21 15:46 Sodium Chloride 0.9% [Saline Flush] 10 ml FLUSH ASDIRECTED PRN Peripheral IV Insertion Adult [OM.PC] Stat 08/26/21 15:47 Peripheral IV Care [RC] . DIRECTED 08/26/21 15:48 Blood Culture x2 Reflex Set [OM.PC] Stat 08/26/21 16:00 Sodium Chloride 0.9% [Normal Saline] 1,000 ml IV ASDIRECTED 08/26/21 16:06 BLOOD CULTURE [MREF] Stat 08/26/21 16:14 BLOOD CULTURE [MREF] Stat 08/26/21 17:44 Sodium Chloride 0.9% [Saline Flush] 10 ml FLUSH ONETIME PRN 08/26/21 18:40 CULTURE, ANAEROBE & AEROBE [MREF] Stat - Assessment/Plan Last 24 Hours: My Active Orders 08/26/21 15:46 Sodium Chloride 0.9% [Saline Flush] 10 ml FLUSH ASDIRECTED PRN Peripheral IV Insertion Adult [OM.PC] Stat 08/26/21 15:47 Peripheral IV Care [RC] . DIRECTED 08/26/21 15:48 Blood Culture x2 Reflex Set [OM.PC] Stat 08/26/21 16:00 Sodium Chloride 0.9% [Normal Saline] 1,000 ml IV ASDIRECTED 08/26/21 16:06 BLOOD CULTURE [MREF] Stat 08/26/21 16:14 BLOOD CULTURE [MREF] Stat 08/26/21 17:44 Sodium Chloride 0.9% [Saline Flush] 10 ml FLUSH ONETIME PRN 08/26/21 18:40 CULTURE, ANAEROBE & AEROBE [MREF] Stat
[2021-08-26] MEDS ORDERED: Diatrizoate Meglumine/Diatrizoate Sodium 37% 120 ML Bottle PO ONE (17:44)
[2021-08-26] MEDS ORDERED: Iopamidol 612 MG/ML 100 ML Bottle IVPUSH ONE (17:44)
--- NOTE | 2021-08-26 18:13 | CT ---
CT abdomen and pelvis Technique: Multiple axial sections were obtained from above the dome of the diaphragm inferiorly through the pubic symphysis. Intravenous and oral contrast were utilized. Reconstructed coronal and sagittal images were obtained. Delayed images were also obtained through the bladder. Comparison: Prior CT abdomen and pelvis study of 02/23/21. Findings: Previous anterior abdominal wall hernia is no longer seen. In the area of prior surgery within the anterior lower pelvis there is a low density area being seen which measures 7.0 cm x 2.2 cm. This is most likely due to a small intra-abdominal abscess. No definite extension is seen into the abdomen of this finding. Visualized lung bases show nothing acute. Liver contains no focal parenchymal abnormality. Spleen size is normal. Adrenal glands show no nodule. Kidneys show symmetric contrast enhancement. No hydronephrosis or mass is seen. Pancreas shows no discrete abnormality. Abdominal aorta shows diffuse atherosclerotic calcification which continues into the iliac vessels. No retroperitoneal adenopathy is seen. There is increased stool being seen within the rectosigmoid regions. Delayed images show contrast within the bladder. Bone window settings were reviewed which show diffuse disc space narrowing throughout the spine as well as spondylolisthesis at L4-5 secondary to degenerative apophyseal changes as well as unilateral spondylolytic change. Impression: 1. Anterior abdominal wall low density finding within the lower pelvis which is highly suspected for anterior abdominal wall abscess. 2. Increased stool within the rectosigmoid region. 3. Other findings as noted above which are chronic. Diagnostic code #3
== END 2021-08-26 19:00 | disposition home or self-care (01) ==
LOC: SUPCPDRO 13:38 → JD.ED 13:38
DX: L02.211 Cutaneous abscess of abdominal wall (principal); K59.09 Other constipation; R74.8 Abnormal levels of other serum enzymes; I10 Essential (primary) hypertension; E03.9 Hypothyroidism, unspecified; Z79.82 Long term (current) use of aspirin; Z91.09 Other allergy status, other than to drugs and biological substances; Z88.8 Allergy status to other drugs, medicaments and biological substances; Z79.899 Other long term (current) drug therapy; Z95.5 Presence of coronary angioplasty implant and graft
CPT/HCPCS: 36415; 74177; 80053; 81001; 83605; 83690; 85025; 86140; 87040; 87070; 87075; 87205; 96374; 99284; J2405; J7030; Q9963; Q9967; 87077; 87186